=== PATIENT | male | born 1975 | race Caucasian/White ===

== ENCOUNTER 2024-07-21 15:12 | Observation (INO) ==
[2024-07-21 15:54] LABS: Hematocrit (blood only) 49.2 % (42.0-52.0); Hemoglobin 16.9 g/dl (14.0-18.0); Mean Corpuscular Hemoglobin 31.4 pg (25.0-34.0); Mean Corpuscular Hgb Conc 34.3 g/dL (32.0-36.0); Mean Corpuscular Volume 91.4 fL (80.0-100.0); Mean Platelet Volume 9.9 fL (9.4-12.4); Platelet Count 285 K/uL (130-400); RDW Coefficient of Variation 12.5 % (11.5-14.5); RDW Standard Deviation 42.2 fL (36.4-46.3); Red Blood Count 5.38 M/uL (4.70-6.10); White Blood Count 13.24 K/ul (4.8-10.8)
--- NOTE | 2024-07-21 16:04 | Emergency Department Note ---
History of Present Illness General Chief complaint: Vomiting Stated complaint: SULFUR BURPS VOMINTG BLACK Time Seen by Provider: 07/21/24 15:55 History of Present Illness Maximum Pain Intensity: 6 This is a 48-year-old male that presents to the emergency department via private vehicle with complaints of "burping, vomiting black, abdominal pain". Patient notes that 2 weeks ago he had a diarrheal type illness and began with eructation that was "sulfur" like in nature. Then yesterday morning he developed abdominal pain, mid abdomen region. He took some Gas-X and then noted some distention of the abdomen. He then took Pepto-Bismol and had some vomiting. He notes the vomit was black/brown "sludge". Patient noted that he last ate yesterday evening noting that he begins to feel nauseated/vomit when he eats and also have abdominal distention. No black tarry stools. No history of similar. No regular alcohol use. He notes he is otherwise healthy. Home Medications Medication Instructions Recorded Confirmed Type No Known Home Medications 07/21/24 07/21/24 History Allergies Allergy/AdvReac Type Severity Reaction Status Date / Time itraconazole Allergy Pt Verified 07/21/24 21:48 tolerated Fluconazole - doesn't remember reaction Past Med/Surg History Problem List (Updated 07/21/24 @ 22:16 by Dallin Mojica PA-C) Abnormal computed tomography of abdomen and pelvis (Acute) GI bleed Abdominal pain (Acute) Diarrhea (Acute) Nausea & vomiting (Acute) Social History Smoking Status: Current every day smoker Tobacco Type: Cigarettes Preferred Language: Yemeni Feels Safe at Home: Yes Review of Systems A total of 10 systems reviewed and were otherwise negative Physical Exam Vital Signs Vital Signs - 24 hr 07/21/24 15:25 07/21/24 15:53 07/21/24 15:53 Temperature 36.3 C L Temperature Source Skin Pulse Rate 81 Pulse Rate [Apical] 73 Respiratory Rate 20 11 L Respiratory Effort / Characteristics Non-Labored Spontaneous Non-Labored Spontaneous Respiratory Depth Normal Normal Blood Pressure 113/77 Blood Pressure [Left Arm] 111/81 Blood Pressure Mean 89 Blood Pressure Mean [Left Arm] 91 Pulse Oximetry 98 99 99 Oxygen Delivery Method Room Air Room Air Room Air Sepsis Recent Fever Within 48 Hours No Sepsis New/Unexplained Change in Mental Status N/A Sepsis Action Taken by Nursing No Action Required 07/21/24 16:23 07/21/24 17:14 Temperature Temperature Source Pulse Rate 85 Pulse Rate [Apical] 64 Respiratory Rate 17 Respiratory Effort / Characteristics Non-Labored Spontaneous Respiratory Depth Normal Blood Pressure Blood Pressure [Left Arm] 120/72 Blood Pressure Mean Blood Pressure Mean [Left Arm] 88 Pulse Oximetry 97 Oxygen Delivery Method Sepsis Recent Fever Within 48 Hours Sepsis New/Unexplained Change in Mental Status Sepsis Action Taken by Nursing VITAL SIGNS - Vital signs and nursing notes were reviewed. Stable and afebrile. GENERAL -48-year-old male appearing his stated age who is in no acute distress. Communicates well with provider and answers questions appropriately. SKIN - Without rashes. No meningeal or petechial rash. HEAD - NC/AT. EYES - PERRL with EOMI bilaterally. Sclera anicteric. LUNGS - Chest wall symmetric without accessory muscle use, intercostals retractions, or central cyanosis. Normal vesicular breath sounds CTA B/L. No wheezes, rales, or rhonchi appreciated. CARDIAC - RRR ABDOMEN - Abdominal contour normal without pulsations or visible masses. BS normoactive all four quadrants. Generalized periumbilical abdominal tenderness to palpation noted. No palpable masses, hepatosplenomegaly, or ascites noted. EXTREMITIES - No clubbing or peripheral cyanosis. +5/5 strength noted in UE/LE bilaterally. NEUROLOGIC - Cranial nerves II through XII grossly intact. PSYCH -alert, oriented and pleasant on exam. Course Administered Medications Lactated Ringer's (Lr) 1,000 mls @ 80 mls/hr IV .[id number] [facility] Stop: 07/24/24 18:59 Last Admin: 07/21/24 19:42 Dose: 80 mls/hr Documented By: KEVON Ondansetron HCl (Ondansetron Inj 2 Mg/Ml 2 Ml Vial) 4 mg IV Q4H PRN PRN Reason: Nausea Stop: 08/20/24 18:28 Last Admin: 07/21/24 21:48 Dose: 4 mg Documented By: MICKEY Discontinued Medications Famotidine (Pepcid 20mg Iv Push) 20 mg in 5 mls @ 2.5 mls/min IV NOW STA Stop: 07/21/24 16:05 Last Admin: 07/21/24 16:10 Dose: 2.5 mls/min Documented By: KEVON Sodium Chloride (Nss) 1,000 mls @ 999 mls/hr IV .Q1H1M ONE Stop: 07/21/24 17:16 Last Infusion: 07/21/24 17:23 Dose: Infused Documented By: Admin: 07/21/24 16:20 Dose: 999 mls/hr Documented By: KEVON Piperacillin Sod/Tazobactam Sod (Zosyn) 4.5 gm in 100 mls @ 200 mls/hr IV NOW ONE; Protocol Stop: 07/21/24 18:23 Last Infusion: 07/21/24 18:37 Dose: Infused Documented By: Admin: 07/21/24 18:05 Dose: 200 mls/hr Documented By: KEVON Pantoprazole Sodium (Protonix) 40 mg in 10 mls @ 5 mls/min IV NOW ONE Stop: 07/21/24 18:27 Last Admin: 07/21/24 18:41 Dose: 5 mls/min Documented By: KEVON Ioversol (Optiray 320 100ml) 90 ml IV ONCE ONE Stop: 07/21/24 16:36 Last Admin: 07/21/24 16:35 Dose: 90 ml Documented By: AZRA Ondansetron HCl (Ondansetron Inj 2 Mg/Ml 2 Ml Vial) 4 mg IV NOW STA Stop: 07/21/24 16:05 Last Admin: 07/21/24 16:12 Dose: 4 mg Documented By: KEVON Medical Decision Making Laboratory Data 07/21/24 15:34 07/21/24 15:34 Lab Results 07/21/24 07/21/24 07/21/24 Range/Units 15:34 15:44 16:30 WBC 13.24 H (4.8-10.8) K/ul RBC 5.38 (4.70-6.10) M/uL Hgb 16.9 (14.0-18.0) g/dl Hct 49.2 (42.0-52.0) % MCV 91.4 (80.0-100.0) fL MCH 31.4 (25.0-34.0) pg MCHC 34.3 (32.0-36.0) g/dL RDW Std Deviation 42.2 (36.4-46.3) fL RDW Coeff of Ileana 12.5 (11.5-14.5) % Plt Count 285 (130-400) K/uL MPV 9.9 (9.4-12.4) fL PT 10.8 (9.0-12.0) Seconds INR 1.0 (0.9-1.1) APTT 29 (21-31) Seconds PTT Ratio 1.1 Sodium 138 (136-145) mmol/L Potassium 4.4 (3.5-5.1) mmol/L Chloride 105 (98-107) mmol/L Carbon Dioxide 28 (21-32) mmol/L Anion Gap 5 (3-11) BUN 13 (6-23) mg/dl Creatinine 0.85 (0.6-1.4) mg/dl Est Cr Clr Drug Dosing 120.9 ml/min eGFR 105.86 BUN/Creatinine Ratio 15.3 (10-20) Glucose 86 (70-99(Fasting)) mg/dl Lactate 0.8 (0.4-2.0) mmol/L Calcium 9.3 (8.6-10.3) mg/dl Total Bilirubin 0.8 (0.2-1.0) mg/dl AST 12 L (13-39) U/L ALT 10 (7-52) U/L Alkaline Phosphatase 95 (34-104) U/L Troponin I High Sens 2.4 (0-20) pg/ml Total Protein 6.9 (6.0-8.3) gm/dl Albumin 4.5 (3.4-5.0) gm/dl Globulin 2.4 L (2.5-4.0) gm/dl Albumin/Globulin Ratio 1.9 (0.9-2) Lipase 22 (11-82) U/L Procalcitonin < 0.02 (0-0.5) ng/ml Urine Color Urine Appearance (Clear) Urine pH (4.5-7.5) Ur Specific Goodwin (1.000-1.030) Urine Protein (Negative) Urine Glucose (UA) (Negative) Urine Ketones (Negative) Urine Blood (Negative) Urine Nitrite (Negative) Urine Bilirubin (Negative) Urine Urobilinogen (Negative) Ur Leukocyte Esterase (Negative) Blood Type O Positive Antibody Screen NEGATIVE 07/21/24 Range/Units 17:11 WBC (4.8-10.8) K/ul RBC (4.70-6.10) M/uL Hgb (14.0-18.0) g/dl Hct (42.0-52.0) % MCV (80.0-100.0) fL MCH (25.0-34.0) pg MCHC (32.0-36.0) g/dL RDW Std Deviation (36.4-46.3) fL RDW Coeff of Ileana (11.5-14.5) % Plt Count (130-400) K/uL MPV (9.4-12.4) fL PT (9.0-12.0) Seconds INR (0.9-1.1) APTT (21-31) Seconds PTT Ratio Sodium (136-145) mmol/L Potassium (3.5-5.1) mmol/L Chloride (98-107) mmol/L Carbon Dioxide (21-32) mmol/L Anion Gap (3-11) BUN (6-23) mg/dl Creatinine (0.6-1.4) mg/dl Est Cr Clr Drug Dosing ml/min eGFR BUN/Creatinine Ratio (10-20) Glucose (70-99(Fasting)) mg/dl Lactate (0.4-2.0) mmol/L Calcium (8.6-10.3) mg/dl Total Bilirubin (0.2-1.0) mg/dl AST (13-39) U/L ALT (7-52) U/L Alkaline Phosphatase (34-104) U/L Troponin I High Sens (0-20) pg/ml Total Protein (6.0-8.3) gm/dl Albumin (3.4-5.0) gm/dl Globulin (2.5-4.0) gm/dl Albumin/Globulin Ratio (0.9-2) Lipase (11-82) U/L Procalcitonin (0-0.5) ng/ml Urine Color Yellow Urine Appearance Clear (Clear) Urine pH 6.0 (4.5-7.5) Ur Specific Goodwin > 1.045 H (1.000-1.030) Urine Protein Negative (Negative) Urine Glucose (UA) Negative (Negative) Urine Ketones 2+ H (Negative) Urine Blood Negative (Negative) Urine Nitrite Negative (Negative) Urine Bilirubin Negative (Negative) Urine Urobilinogen Negative (Negative) Ur Leukocyte Esterase Negative (Negative) Blood Type Antibody Screen Imaging Data Radiologist's Impression: Chest X-Ray 07/21/24 16:04 Chest radiograph, one view History: Chest pain Comparison: Findings: Single AP view of the chest performed. 4:01 PM No focal consolidation or pleural effusion. No pneumothorax. The cardiomediastinal silhouette is within normal limits. Normal pulmonary vascularity. No evidence for lymphadenopathy. No visualized bony or soft tissue abnormality. Impression: Normal chest radiograph Electronically signed by Josh Pat 07-21-2024 4:41 PM Abdomen/Pelvis CT 07/21/24 16:08 Technique: Axial images were obtained along with coronal and sagittal reconstruction. Patient was injected with contrast intravenously, the amount and type is recorded in the EMR DLP in mGycm reported in the EMR record. Dose lowering technique: Automated exposure control with adjustment of the MA and/or KV, use of iterative reconstruction. Data included in the medical record Findings: Imaged lower lung crenshaw are clear. Air is noted in the liver. Probably in the portal veins. No biliary dilatation. No masses. Gallbladder is normal. Pancreas is unremarkable. No dilatation of the pancreatic duct. Kidneys are normal. No free air or evidence of small bowel obstruction. Normal appendix. Bladder is unremarkable. Severe disc space narrowing at several lumbar levels. Impression Air noted in the liver, probably in the hepatic veins. Etiology is not evident from the examination Electronically signed by Josh Pat 07-21-2024 4:49 PM MDM Narrative Patient was seen and evaluated as above in room C09. Review was performed of triage nursing notes and vital signs. Patient presents to us today with abdominal discomfort, vomiting and some eructation. Overall benign abdominal examination. Vital signs stable. Options of care were discussed with the patient. IV access was established. Labs were drawn. Leukocytosis 13.24. No anemia. No emergent metabolic disturbance. Urinalysis negative. Lipase normal. Procalcitonin and lactate normal. Blood culture pending. Urinalysis does not suggest infection. CT scan of the abdomen/pelvis is as above. Air noted in the liver, probably in hepatic veins per radiologist. Multiple differentials considered. I will cover with empiric antibiotics noting the patient's abdominal pain, CT findings and leukocytosis. Case discussed with GI. [address] Joy of GI. He went to bedside to see the patient. Please refer to his documentation regarding evaluation of the patient. Subsequently plan will be for inpatient management. Case discussed with the hospitalist service. Please refer to further documentation regarding his stay. Case was discussed with the attending physician. GCS: 15 In the evaluation and treatment of this patient the following differential diagnoses were entertained: Gastroenteritis, bowel obstruction, GI bleed, ascending cholangitis, among others Impression & Plan Nausea & vomiting, Diarrhea, Abdominal pain, Abnormal computed tomography of abdomen and pelvis Discharge Plan Visit Data Chief Complaint: Vomiting Stated Complaint: SULFUR BURPS VOMINTG BLACK ED Provider: Jarred Leslie ED Midlevel Provider: Dallin Mojica Discharge Problem: Nausea & vomiting, Diarrhea, Abdominal pain, Abnormal computed tomography of abdomen and pelvis Patient Disposition: Admitted As Inpatient Condition: Good Discharge Instructions Interventions: ED Discharge Assessment Last Done: 07/21/24 21:19
[2024-07-21] MEDS: FAMOTIDINE 20MG IV PUSH 20 MG/5 ML SYR IV STA (16:10)
[2024-07-21] MEDS: ONDANSETRON INJ 2 MG/ML 2 ML VIAL IV STA (16:12)
[2024-07-21 16:13] LABS: Albumin Globulin Ratio 1.9 (0.9-2); Albumin Level 4.5 gm/dl (3.4-5.0); BUN Creatinine Ratio 15.3 (10-20); Bilirubin,Total 0.8 mg/dl (0.2-1.0); Calcium 9.3 mg/dl (8.6-10.3); Creatinine Clr Calc Pharmacy 120.9 ml/min; Globulin 2.4 gm/dl (2.5-4.0); Potassium 4.4 mmol/L (3.5-5.1); Total Protein 6.9 gm/dl (6.0-8.3)
[2024-07-21 16:20] LABS: Troponin I High Sensitivity 2.4 pg/ml (0-20)
[2024-07-21] MEDS: SODIUM CHLORIDE 0.9% 1,000 ML IV ONE (16:20)
[2024-07-21 16:25] LABS: Partial Thromboplastin Ratio 1.1; Partial Thromboplastin Time 29 Seconds (21-31); Prothrombin Time 10.8 Seconds (9.0-12.0)
[2024-07-21] MEDS: OPTIRAY 320 100ml IV ONE (16:35)
--- NOTE | 2024-07-21 16:42 | XRay Report ---
Chest radiograph, one view History: Chest pain Comparison: Findings: Single AP view of the chest performed. 4:01 PM No focal consolidation or pleural effusion. No pneumothorax. The cardiomediastinal silhouette is within normal limits. Normal pulmonary vascularity. No evidence for lymphadenopathy. No visualized bony or soft tissue abnormality. Impression: Normal chest radiograph Electronically signed by Josh Pat 07-21-2024 4:41 PM
--- NOTE | 2024-07-21 16:49 | CT Scan Report ---
Technique: Axial images were obtained along with coronal and sagittal reconstruction. Patient was injected with contrast intravenously, the amount and type is recorded in the EMR DLP in mGycm reported in the EMR record. Dose lowering technique: Automated exposure control with adjustment of the MA and/or KV, use of iterative reconstruction. Data included in the medical record Findings: Imaged lower lung crenshaw are clear. Air is noted in the liver. Probably in the portal veins. No biliary dilatation. No masses. Gallbladder is normal. Pancreas is unremarkable. No dilatation of the pancreatic duct. Kidneys are normal. No free air or evidence of small bowel obstruction. Normal appendix. Bladder is unremarkable. Severe disc space narrowing at several lumbar levels. Impression Air noted in the liver, probably in the hepatic veins. Etiology is not evident from the examination Electronically signed by Josh Pat 07-21-2024 4:49 PM
[2024-07-21 17:27] LABS: Appearance Urine Clear (Clear); Bilirubin Urine Negative (Negative); Blood Urine Negative (Negative); Color Urine Yellow; Glucose Urine UA Negative (Negative); Ketones Urine 2+ (Negative); Leukocyte Esterase Urine Negative (Negative); Nitrite Urine Negative (Negative); Protein Urine Negative (Negative); Specific Gravity Urine > 1.045 (1.000-1.030); Urobilinogen Urine Negative (Negative)
[2024-07-21] MEDS: PIPERACILLIN/TAZOBACTAM 4.5 GM/100 ML BAG IV ONE (18:05)
--- NOTE | 2024-07-21 18:38 | History & Physical Report ---
Date of Service July 21, 2024 Assessment & Plan (1) Nausea & vomiting: (2) Diarrhea: Plan This is a 48-year-old gentleman with no significant past medical history who presented to the emergency department on 08/07/2024 with a chief complaint of nausea and vomiting. While in the emergency department patient was found to have a mild elevation of his WBC at 13.24, hemoglobin completely normal at 16.9. BMP unremarkable. His Pro-Krishna was negative. His troponin was negative at 2.4. His LFTs were completely normal. Urine was negative for infection. His CXR was negative. He did have a CTAP that did reveal air noted in the liver, probably the hepatic veins. The patient told me that Dr. Joy, the lab technician on-call did evaluate him prior to my encounter. The patient tells me that Dr. Joy is going to reach out to the radiology department to get a second read on his CAT scan. #Nausea/vomiting/diarrhea Approximately 2 weeks ago household infection of gastroenteritis. Patient's symptoms have persisted on and off since then including a worsening of vomiting/diarrhea in the last 24 to 48 hours Likely gastritis from recent infection; No NSAID use; dark tarry vomit secondary to pepto-bismol use given stable hgb. CTAP: Air noted in the liver, probably the hepatic veins; Chest x-ray negative CBC with mild leukocytosis of 13.24, hemoglobin unremarkable. CMP unremarkable. Procal negative; troponin negative. Lipase pending IV PPI twice daily scheduled; Zofran IV as needed for nausea vomiting Given patient still nauseous, keep n.p.o. but allow sips and chips. Can likely advance diet in the a.m. GI consulted, appreciate recommendations Stool studies pending Continue IV fluids Hold further IV antibiotics on admission given symptoms appear noninfectious in nature. AM CBC, CMP DVT prophylaxis: Encourage ambulation Code: Full Case was discussed with Dr. Bailey at time of admission History of Present Illness Primary Care Provider: Sesar Leslie This is a 48-year-old gentleman with no significant past medical history who presented to the emergency department on 08/07/2024 with a chief complaint of nausea and vomiting. The patient was seen and examined this evening with his at bedside. Patient reports that about 2 weeks ago his family household had an episode of gastroenteritis. He states that his family had recovered within 24 to 48 hours but he feels that his symptoms have persisted on. He states that over the last 2 weeks he has not felt right and has had intermittent nausea and diarrhea. He also states that he has been experiencing "sulfur burps". He denies any acid reflux. He denies any NSAID use. He states that yesterday he did take a dose of Pepto-Bismol but as soon as he drank it he immediately vomited it back up. He states that that was tar-like. He also reports that his episode of vomiting today was also tar-like. He states that he did have an episode of diarrhea today that was darker in color. He states that he did not exactly look closely at his stool. He denies any bright red blood. He admits to epigastric abdominal pain and describes this as a cramping sensation. He states that this has not subsided since reporting to the emergency department. He denies any chest pain, shortness of breath, urinary complaints. Denies any lower extremity edema. While in the emergency department patient was found to have a mild elevation of his WBC at 13.24, hemoglobin completely normal at 16.9. BMP unremarkable. His Pro-Krishna was negative. His troponin was negative at 2.4. His LFTs were completely normal. Urine was negative for infection. His CXR was negative. He did have a CTAP that did reveal air noted in the liver, probably the hepatic veins. The patient told me that Dr. Joy, the lab technician on-call did evaluate him prior to my encounter. The patient tells me that Dr. Joy is going to reach out to the radiology department to get a second read on his CAT scan. Allergies Allergy/AdvReac Type Severity Reaction Status Date / Time itraconazole Allergy Pt Verified 07/21/24 21:48 tolerated Fluconazole - doesn't remember reaction Home Medications Medication Instructions Recorded Confirmed Type pantoprazole 40 mg tablet,delayed 40 mg PO DAILY #37 tabs 07/23/24 Rx release (Protonix) Past Med/Surg History Problem List (Updated 07/23/24 @ 10:10 by ANTON Trevino) Coffee ground emesis Hematemesis Abnormal computed tomography of abdomen and pelvis (Acute) GI bleed Abdominal pain (Acute) Diarrhea (Acute) Nausea & vomiting (Acute) Social History Smoking Status: Current every day smoker Tobacco Type: Cigarettes Cigarettes Per Day: LESS THAN A PACK; Hx Alcohol Use: Yes Hx Substance Use: No Preferred Language: Mozambican Communication Ability: Effective Svp Operations Required: No Beliefs That Will Affect Care: None Current Living Situation: Spouse Feels Safe at Home: Yes Assistive Devices: None Physical Exam Physical Exam: General: no acute distress; non-toxic appearing; well-nourished; cooperative HEENT: normocephalic, atraumatic; no scleral icterus; PERRLA w/ EOMs intact; vision and hearing grossly intact Neck: supple; no lymphadenopathy; trachea midline Skin: warm, dry without signs of tenting; no cyanosis; no rashes, bruising, lesions, or erythema noted CV: chest wall NTP; RRR; S1/S2 normal; no murmurs/rubs/gallops; pulses intact and symmetric at radial, DP, and PT Lungs: no acute respiratory distress; symmetrical chest wall expansion; clear breath sounds across all lung crenshaw w/o adventitious sounds; no wheezing ABD: Soft, NTP; BS present; no rebound/guarding; no distention MSK: no tics or fasciculations; no edema noted in the LEs b/l, nonerythematous Neuro: A&Ox3; normal mood and affect; fluent speech; no focal deficits; sensation grossly intact in the LEs b/l Results & Data Results & Data Vital Signs (Past 12 Hours) Vital Signs Temp Pulse Pulse Resp BP BP Pulse Ox 07/21/24 17:14 64 17 120/72 97 07/21/24 16:23 85 07/21/24 15:53 99 07/21/24 15:53 73 11 L 111/81 99 07/21/24 15:25 36.3 C L 81 20 113/77 98 O2 Del Method 07/21/24 17:14 07/21/24 16:23 07/21/24 15:53 Room Air 07/21/24 15:53 Room Air 07/21/24 15:25 Room Air Supervising Physician Co-Signing Physician Notes During face to face encounter, I obtained a history and physical examination, discussed plan of care with patient and answered any questions. I discussed plan of care with JAVON Barajas. I reviewed above note and agree with it except for the following: Patient will be admitted for nausea, vomiting, diarrhea. Will observation and treat with supportive care. will hold IV antibiotics PG Care Time/CCT Total # of Minutes Spent Total Time Spent with Patient: Total time spent is greater than 50% in coordination of care (as documented) at patient's floor/unit and/or counseling patient: Coding Level of Care Code 86800 INT INP/OBS CARE 3/75MIN Diagnoses Nausea & vomiting R11.2 Diarrhea R19.7
[2024-07-21] MEDS: PANTOprazole 40 MG/10 ML SYR IV ONE (18:41)
--- NOTE | 2024-07-21 19:18 | Gastrointestinal Consultation ---
Date of Consultation July 21, 2024 Assessment & Plan (1) Abdominal pain: The differential diagnosis for portal vein air in this patient could be related to his recent gastroenteritis, possible peptic ulcer disease in light of possible melena and hematemesis, less likely ischemia. There is no evidence of perforation on CT with no pneumoperitoneum. Inflammatory conditions of the GI tract can cause translocation of air most commonly just to the portal vein however could sometimes extend into the hepatic veins. Other etiologies that do not apply here would be iatrogenic or traumatic. Clinically he is hemodynamically stable not septic and has a benign abdomen. Agree with empiric antibiotics in light of the leukocytosis monitor his clinical exam regularly will reassess in a.m. will consider upper endoscopy on Tuesday sooner if his condition changes. (2) GI bleed: Suspect GI bleed in light of the possible hematemesis and melena. Likely upper GI source consistent with either peptic ulcer disease, hemorrhagic gastritis unlikely varices in light of lack of history of liver disease. Recommend IV PPI monitor hemoglobin hematocrit will consider endoscopy within the next 48 hours. History of Present Illness Reason for Consultation: Abdominal pain possible melena and hepatic vein air History of Present Illness Patient presents to the ER today with worsening upper abdominal pain associated with vomiting coffee grounds and black bowel movements over the last several days. Over the last 2 weeks she has been suffering from a GI illness characte rized by diarrhea nausea and vomiting. Majority of symptoms resolved. His also was sick at the time. However he continued to have some vague upper abdominal discomfort which lingered. Today the pain worsened with some feeling of distention and he vomited up coffee-ground material and continue to have black tarry type bowel movements. CT scan of the abdomen was unremarkable except for some hepatic vein air that was noticed. He denies any prior significant GI illnesses. He is otherwise healthy without any significant medical issues and takes no medication. Allergies Allergy/AdvReac Type Severity Reaction Status Date / Time Triazole Antifungals Allergy Unknown Pt Uncoded 07/21/24 17:20 tolerated Fluconazole - doesn't remember reaction Home Medications Medication Instructions Recorded Confirmed Type No Known Home Medications 07/21/24 07/21/24 History Patient History Social History Smoking Status: Current every day smoker Tobacco Type: Cigarettes Preferred Language: Grenadian Feels Safe at Home: Yes Review of Systems Review of Systems: No fever No chills No SOB No CP + Abd pain Physical Exam Physical Exam: Eyes; anicteric HENT No masses Chest clear to A Cor S1, S2 physiologic Abd: softer mild upper abdominal tenderness no rebound no guarding no masses Ext no edema Results & Data Vital Signs (Past 12 Hours) Vital Signs Temp Pulse Pulse Resp BP BP Pulse Ox 07/21/24 17:14 64 17 120/72 97 07/21/24 16:23 85 07/21/24 15:53 99 07/21/24 15:53 73 11 L 111/81 99 07/21/24 15:25 36.3 C L 81 20 113/77 98 O2 Del Method 07/21/24 17:14 07/21/24 16:23 07/21/24 15:53 Room Air 07/21/24 15:53 Room Air 07/21/24 15:25 Room Air Laboratory Results Laboratory Results - last 48 hr 07/21/24 07/21/24 07/21/24 15:34 15:44 16:30 WBC 13.24 H RBC 5.38 Hgb 16.9 Hct 49.2 MCV 91.4 MCH 31.4 MCHC 34.3 RDW Std Deviation 42.2 RDW Coeff of Ileana 12.5 Plt Count 285 MPV 9.9 PT 10.8 INR 1.0 APTT 29 PTT Ratio 1.1 Sodium 138 Potassium 4.4 Chloride 105 Carbon Dioxide 28 Anion Gap 5 BUN 13 Creatinine 0.85 Est Cr Clr Drug Dosing 120.9 eGFR 105.86 BUN/Creatinine Ratio 15.3 Glucose 86 Lactate 0.8 Calcium 9.3 Total Bilirubin 0.8 AST 12 L ALT 10 Alkaline Phosphatase 95 Troponin I High Sens 2.4 Total Protein 6.9 Albumin 4.5 Globulin 2.4 L Albumin/Globulin Ratio 1.9 Lipase 22 Procalcitonin < 0.02 Urine Color Urine Appearance Urine pH Ur Specific [place] Urine Protein Urine Glucose (UA) Urine Ketones Urine Blood Urine Nitrite Urine Bilirubin Urine Urobilinogen Ur Leukocyte Esterase Blood Type O Positive Antibody Screen NEGATIVE 07/21/24 17:11 WBC RBC Hgb Hct MCV MCH MCHC RDW Std Deviation RDW Coeff of Ileana Plt Count MPV PT INR APTT PTT Ratio Sodium Potassium Chloride Carbon Dioxide Anion Gap BUN Creatinine Est Cr Clr Drug Dosing eGFR BUN/Creatinine Ratio Glucose Lactate Calcium Total Bilirubin AST ALT Alkaline Phosphatase Troponin I High Sens Total Protein Albumin Globulin Albumin/Globulin Ratio Lipase Procalcitonin Urine Color Yellow Urine Appearance Clear Urine pH 6.0 Ur Specific [place] > 1.045 H Urine Protein Negative Urine Glucose (UA) Negative Urine Ketones 2+ H Urine Blood Negative Urine Nitrite Negative Urine Bilirubin Negative Urine Urobilinogen Negative Ur Leukocyte Esterase Negative Blood Type Antibody Screen Diagnostic Findings Chest X-Ray 07/21/24 16:04 Chest radiograph, one view History: Chest pain Comparison: Findings: Single AP view of the chest performed. 4:01 PM No focal consolidation or pleural effusion. No pneumothorax. The cardiomediastinal silhouette is within normal limits. Normal pulmonary vascularity. No evidence for lymphadenopathy. No visualized bony or soft tissue abnormality. Impression: Normal chest radiograph Electronically signed by Josh Pat 07-21-2024 4:41 PM Abdomen/Pelvis CT 07/21/24 16:08 Technique: Axial images were obtained along with coronal and sagittal reconstruction. Patient was injected with contrast intravenously, the amount and type is recorded in the EMR DLP in mGycm reported in the EMR record. Dose lowering technique: Automated exposure control with adjustment of the MA and/or KV, use of iterative reconstruction. Data included in the medical record Findings: Imaged lower lung crenshaw are clear. Air is noted in the liver. Probably in the portal veins. No biliary dilatation. No masses. Gallbladder is normal. Pancreas is unremarkable. No dilatation of the pancreatic duct. Kidneys are normal. No free air or evidence of small bowel obstruction. Normal appendix. Bladder is unremarkable. Severe disc space narrowing at several lumbar levels. Impression Air noted in the liver, probably in the hepatic veins. Etiology is not evident from the examination Electronically signed by Josh Pat 07-21-2024 4:49 PM PG Care Time/CCT Total # of Minutes Spent Total Time Spent with Patient: Total time spent is greater than 50% in coordination of care (as documented) at patient's floor/unit and/or counseling patient: Coding Level of Care Code 23723 INT INP/OBS CARE 3/75MIN Diagnoses Abdominal pain R10.9 GI bleed K92.2
[2024-07-21] MEDS: LACTATED RINGER'S 1,000 ML IV SCH (19:42)
[2024-07-21] MEDS: ONDANSETRON INJ 2 MG/ML 2 ML VIAL IV PRN (21:48)
[2024-07-22 06:51] LABS: Hematocrit (blood only) 41.9 % (42.0-52.0); Hemoglobin 14.4 g/dl (14.0-18.0); Mean Corpuscular Hemoglobin 31.2 pg (25.0-34.0); Mean Corpuscular Hgb Conc 34.4 g/dL (32.0-36.0); Mean Corpuscular Volume 90.7 fL (80.0-100.0); Mean Platelet Volume 10.1 fL (9.4-12.4); Platelet Count 249 K/uL (130-400); RDW Coefficient of Variation 12.6 % (11.5-14.5); RDW Standard Deviation 41.5 fL (36.4-46.3); Red Blood Count 4.62 M/uL (4.70-6.10); White Blood Count 7.96 K/ul (4.8-10.8)
[2024-07-22 07:21] LABS: Albumin Globulin Ratio 1.7 (0.9-2); Albumin Level 3.4 gm/dl (3.4-5.0); BUN Creatinine Ratio 12.5 (10-20); Calcium 8.4 mg/dl (8.6-10.3); Creatinine Clr Calc Pharmacy 128.4 ml/min; Potassium 3.9 mmol/L (3.5-5.1); Total Protein 5.4 gm/dl (6.0-8.3)
--- NOTE | 2024-07-22 07:46 | Hospitalist Progress Note ---
Date of Service July 22, 2024 Assessment & Plan (1) Hematemesis: (2) Nausea & vomiting: (3) Diarrhea: (4) Abdominal pain: (5) GI bleed: Plan This is a 48-year-old gentleman with no significant past medical history who presented to the emergency department on 08/07/2024 with a chief complaint of nausea and vomiting. While in the emergency department patient was found to have a mild elevation of his WBC at 13.24, hemoglobin completely normal at 16.9. BMP unremarkable. His Pro-Krishna was negative. His troponin was negative at 2.4. His LFTs were completely normal. Urine was negative for infection. His CXR was negative. He did have a CTAP that did reveal air noted in the liver, probably the hepatic veins. The patient told me that Dr. Joy, the insulation worker interior surface on-call did evaluate him prior to my encounter. The patient tells me that Dr. Joy is going to reach out to the radiology department to get a second read on his CAT scan. #Hematemesis (by report), n/v, diarrhea Approximately 2 weeks ago household infection of gastroenteritis. Patient's symptoms have persisted on and off since then including a worsening of vomiting/diarrhea in the last 24 to 48 hours Likely gastritis from recent infection; No NSAID use; dark tarry vomit secondary to pepto-bismol use given stable hgb. CTAP noted air in liver, probably hepatic veins WBC 13.2k, hgb 16 on admission (?dehydrated w/ n/v). Procal <0.02 GI consulted, recommend continue empiric abx, will resume Zosyn as given in ER for now. Per discussion w/ Dr Joy, would continue until blood cultures resulted - pending WBC wnl, afebrile. Blood cultures pending Hgb stable 14.1 with ongoing IVF and suspect dilutional. No further n/v or bleeding (or diarrhea) Stool studies, fecal occult ordered - not yet collected Antiemetics as needed Continue IVF, CLEAR LIQUID DIET FOR TODAY NPO for EGD in AM senthil/ Dr Joy DVT proph: SCDs, ambulation Dispo: continued inpatient stay, EGD in AM w/ Dr Joy Admission and Anticipated Discharge Date Admission Date: July 21, 2024 Supervising Physician Co-Signing Physician Notes The patient was not seen by me. The chart was reviewed. Case discussed with KAMERON Philip. Agree with assessment and plan Subjective Eval this morning, feeling much better. Reported 2 wks ago him and ill but she recovered and he had ongoing issues. No belly pain, is hungry, reports hasn't eaten x 2 days. Clear liquids for today/NPO for EGD tomorrow. No fever/chills, no chest pain/shortness of breath or further nausea/vomiting. Questions/concerns addressed at this time. Physical Exam 2 Physical Exam: General: 48yo male sitting up in bed, NAD, reports feeling improved Head atraumatic, normocephalic mmm, trachea midline Resp: even/unlabored, no wheezing, on room air CV: RRR, no significant m/r/g, no pitting edema GI: +BS, soft, NONTENDER, no guarding/rebound MSK/Neuro: nonfocal, not confused Psych: AOxx3, cooperative with exam Results & Data Results & Data Vital Signs (Past 12 Hours) Vital Signs Temp Pulse Pulse Pulse Resp BP Pulse Ox 07/22/24 07:34 36.4 C L 67 18 100/62 94 07/21/24 21:25 36.6 C 71 18 109/71 96 07/21/24 21:00 69 16 105/62 95 07/21/24 20:33 72 O2 Del Method 07/22/24 07:34 Room Air 07/21/24 21:25 Room Air 07/21/24 21:00 Room Air 07/21/24 20:33 Laboratory Results 07/22/24 06:20 07/22/24 06:20 LFTs wnl Lipase 22 Procal <0.02 Blood cultures pending Diagnostic Findings Chest X-Ray 07/21/24 16:04 Chest radiograph, one view History: Chest pain Comparison: Findings: Single AP view of the chest performed. 4:01 PM No focal consolidation or pleural effusion. No pneumothorax. The cardiomediastinal silhouette is within normal limits. Normal pulmonary vascularity. No evidence for lymphadenopathy. No visualized bony or soft tissue abnormality. Impression: Normal chest radiograph Electronically signed by Josh Pat 07-21-2024 4:41 PM Abdomen/Pelvis CT 07/21/24 16:08 Technique: Axial images were obtained along with coronal and sagittal reconstruction. Patient was injected with contrast intravenously, the amount and type is recorded in the EMR DLP in mGycm reported in the EMR record. Dose lowering technique: Automated exposure control with adjustment of the MA and/or KV, use of iterative reconstruction. Data included in the medical record Findings: Imaged lower lung crenshaw are clear. Air is noted in the liver. Probably in the portal veins. No biliary dilatation. No masses. Gallbladder is normal. Pancreas is unremarkable. No dilatation of the pancreatic duct. Kidneys are normal. No free air or evidence of small bowel obstruction. Normal appendix. Bladder is unremarkable. Severe disc space narrowing at several lumbar levels. Impression Air noted in the liver, probably in the hepatic veins. Etiology is not evident from the examination Electronically signed by Josh Pat 07-21-2024 4:49 PM PG Care Time/CCT Total # of Minutes Spent Total Time Spent with Patient: Total time spent is greater than 50% in coordination of care (as documented) at patient's floor/unit and/or counseling patient: Coding Level of Care Code 48658 SUB INP/OBS CARE 3/50MIN Diagnoses Hematemesis K92.0 Nausea & vomiting R11.2 Diarrhea R19.7 Abdominal pain R10.9 GI bleed K92.2
--- NOTE | 2024-07-22 08:05 | Gastroenterology Progress Note ---
Date of Service July 22, 2024 Assessment & Plan (1) Hematemesis: Plan: Dynamically stable hemoglobin stable no overt bleeding at the present time. Will proceed with endoscopy in a.m. (2) Abnormal computed tomography of abdomen and pelvis: Plan: Unclear etiology for portal and hepatic vein air on CT. Benign abdominal exam no signs of sepsis. Likely related to inflammatory process in the GI tract which is clinically resolving. Proceed with endoscopy for further investigation in AM. Admission and Anticipated Discharge Date Admission Date: July 21, 2024 Subjective Resting comfortably less abdominal pain no nausea no vomiting no bowel movements. No shortness of breath no chest pain. Physical Exam Physical Exam: No acute distress afebrile Respiratory rate regular Cardiac rhythm regular Abdomen soft nontender Results & Data Results & Data Vital Signs (Past 12 Hours) Vital Signs Temp Pulse Pulse Pulse Resp BP Pulse Ox 07/22/24 07:34 36.4 C L 67 18 100/62 94 07/21/24 21:25 36.6 C 71 18 109/71 96 07/21/24 21:00 69 16 105/62 95 07/21/24 20:33 72 O2 Del Method 07/22/24 07:34 Room Air 07/21/24 21:25 Room Air 07/21/24 21:00 Room Air 07/21/24 20:33 Laboratory Results Laboratory Results - last 48 hr 07/21/24 07/21/24 07/21/24 15:34 15:44 16:30 WBC 13.24 H RBC 5.38 Hgb 16.9 Hct 49.2 MCV 91.4 MCH 31.4 MCHC 34.3 RDW Std Deviation 42.2 RDW Coeff of Ileana 12.5 Plt Count 285 MPV 9.9 PT 10.8 INR 1.0 APTT 29 PTT Ratio 1.1 Sodium 138 Potassium 4.4 Chloride 105 Carbon Dioxide 28 Anion Gap 5 BUN 13 Creatinine 0.85 Est Cr Clr Drug Dosing 120.9 eGFR 105.86 BUN/Creatinine Ratio 15.3 Glucose 86 Lactate 0.8 Calcium 9.3 Total Bilirubin 0.8 AST 12 L ALT 10 Alkaline Phosphatase 95 Troponin I High Sens 2.4 Total Protein 6.9 Albumin 4.5 Globulin 2.4 L Albumin/Globulin Ratio 1.9 Lipase 22 Procalcitonin < 0.02 Urine Color Urine Appearance Urine pH Ur Specific [place] Urine Protein Urine Glucose (UA) Urine Ketones Urine Blood Urine Nitrite Urine Bilirubin Urine Urobilinogen Ur Leukocyte Esterase Blood Type O Positive Antibody Screen NEGATIVE 07/21/24 07/22/24 17:11 06:20 WBC 7.96 RBC 4.62 L Hgb 14.4 Hct 41.9 L MCV 90.7 MCH 31.2 MCHC 34.4 RDW Std Deviation 41.5 RDW Coeff of Ileana 12.6 Plt Count 249 MPV 10.1 PT INR APTT PTT Ratio Sodium 139 Potassium 3.9 Chloride 108 H Carbon Dioxide 26 Anion Gap 5 BUN 10 Creatinine 0.80 Est Cr Clr Drug Dosing 128.4 eGFR 107.82 BUN/Creatinine Ratio 12.5 Glucose 81 Lactate Calcium 8.4 L Total Bilirubin 1.0 AST 10 L ALT 8 Alkaline Phosphatase 71 Troponin I High Sens Total Protein 5.4 L D Albumin 3.4 Globulin 2.0 L Albumin/Globulin Ratio 1.7 Lipase Procalcitonin Urine Color Yellow Urine Appearance Clear Urine pH 6.0 Ur Specific [place] > 1.045 H Urine Protein Negative Urine Glucose (UA) Negative Urine Ketones 2+ H Urine Blood Negative Urine Nitrite Negative Urine Bilirubin Negative Urine Urobilinogen Negative Ur Leukocyte Esterase Negative Blood Type Antibody Screen PG Care Time/CCT Total # of Minutes Spent Total Time Spent with Patient: Total time spent is greater than 50% in coordination of care (as documented) at patient's floor/unit and/or counseling patient: Coding Level of Care Code 34436 SUB INP/OBS CARE 2/35MIN Diagnoses Hematemesis K92.0 Abnormal computed tomography of abdomen and pelvis R93.5
[2024-07-22] MEDS: PANTOprazole 40 MG/10 ML SYR IV SCH (08:12)
[2024-07-22] MEDS: 4.5GM X1 IV STA (08:13)
[2024-07-22] MEDS: PIPERACILLIN/TAZOBACTAM 4.5 GM/100 ML BAG IV SCH (14:14)
[2024-07-23 07:35] LABS: Hematocrit (blood only) 40.8 % (42.0-52.0); Hemoglobin 13.9 g/dl (14.0-18.0); Mean Corpuscular Hemoglobin 30.9 pg (25.0-34.0); Mean Corpuscular Hgb Conc 34.1 g/dL (32.0-36.0); Mean Corpuscular Volume 90.7 fL (80.0-100.0); Mean Platelet Volume 9.9 fL (9.4-12.4); Platelet Count 241 K/uL (130-400); RDW Coefficient of Variation 12.5 % (11.5-14.5); RDW Standard Deviation 41.3 fL (36.4-46.3); White Blood Count 7.05 K/ul (4.8-10.8)
[2024-07-23 07:55] LABS: Albumin Globulin Ratio 1.8 (0.9-2); Albumin Level 3.4 gm/dl (3.4-5.0); BUN Creatinine Ratio 7.4 (10-20); Bilirubin,Total 0.9 mg/dl (0.2-1.0); Calcium 8.5 mg/dl (8.6-10.3); Creatinine Clr Calc Pharmacy 108.2 ml/min; Globulin 1.9 gm/dl (2.5-4.0); Potassium 3.7 mmol/L (3.5-5.1); Total Protein 5.3 gm/dl (6.0-8.3)
--- NOTE | 2024-07-23 10:14 | Gastroenterology Progress Note ---
Date of Service July 23, 2024 Assessment & Plan (1) Coffee ground emesis: Plan: 48 year old male w/o past medical history admitted through the ED w/ prolonged nausea/vomiting and report of coffee ground emesis. Reports family at home had gastroenteritis and improved, however, his symptoms persisted. CTAP w/ portal vein air w/o evidence of perforation or pneumoperitoneum. His abdominal examination is benign. There is report of coffee ground emesis and melena prior to arrival and he is NPO for EGD evaluation today. Maintain NPO status for EGD, continue IV PPI. Trend H&H. Transfuse PRN per primary team. Document GI output. We appreciate assistance in the management of any serological abnormality and corrections to include: hemoglobin >7, INR <2, platelets >50,000, potassium levels >3.5 but <5.3, and sodium levels within 5 points of the reference range prior to endoscopic evaluation. Admission and Anticipated Discharge Date Admission Date: July 21, 2024 Supervising Physician Co-Signing Physician Notes I personally saw and examined the patient. I have reviewed the chart and agree with the documentation provided by the CONSULTING SYSTEMS ENGINEER including discussion about the assessment, treatment and plan. Briefly, EGD today coffee ground emesis and melena. CT with ? portal venous gas but benign exam. ? gastroentertitis. EGD today. NPO. Subjective Pt was seen and evaluated, chart reviewed. Is NPO for EGD this AM. Review of Systems Review of Systems: All other findings negative except as noted in HPI. Physical Exam Constitutional: well developed and well nourished Respiratory: normal respiratory effort, lungs clear to auscultation Cardiovascular: Rate/Rhythm: regular rate and regular rhythm Gastrointestinal (Abdomen): normal bowel sounds, soft, nontender, no hepatosplenomegaly Skin: no rashes, warm and dry Results & Data Results & Data Vital Signs (Past 12 Hours) Vital Signs Temp Pulse Resp BP Pulse Ox O2 Del Method 07/23/24 07:55 97.7 F 72 18 115/69 94 Room Air Laboratory Results 07/23/24 Range/Units 07:08 WBC 7.05 (4.8-10.8) K/ul RBC 4.50 L (4.70-6.10) M/uL Hgb 13.9 L (14.0-18.0) g/dl Hct 40.8 L (42.0-52.0) % MCV 90.7 (80.0-100.0) fL MCH 30.9 (25.0-34.0) pg MCHC 34.1 (32.0-36.0) g/dL RDW Std Deviation 41.3 (36.4-46.3) fL RDW Coeff of Ileana 12.5 (11.5-14.5) % Plt Count 241 (130-400) K/uL MPV 9.9 (9.4-12.4) fL Sodium 139 (136-145) mmol/L Potassium 3.7 (3.5-5.1) mmol/L Chloride 108 H (98-107) mmol/L Carbon Dioxide 27 (21-32) mmol/L Anion Gap 4 (3-11) BUN 7 (6-23) mg/dl Creatinine 0.95 (0.6-1.4) mg/dl Est Cr Clr Drug Dosing 108.2 ml/min eGFR 97.51 BUN/Creatinine Ratio 7.4 L (10-20) Glucose 88 (70-99(Fasting)) mg/dl Calcium 8.5 L (8.6-10.3) mg/dl Total Bilirubin 0.9 (0.2-1.0) mg/dl AST 10 L (13-39) U/L ALT 7 (7-52) U/L Alkaline Phosphatase 68 (34-104) U/L Total Protein 5.3 L (6.0-8.3) gm/dl Albumin 3.4 (3.4-5.0) gm/dl Globulin 1.9 L (2.5-4.0) gm/dl Albumin/Globulin Ratio 1.8 (0.9-2) PG Care Time/CCT Total # of Minutes Spent Total Time Spent with Patient: Total time spent is greater than 50% in coordination of care (as documented) at patient's floor/unit and/or counseling patient: Coding Level of Care Code None Diagnoses Coffee ground emesis K92.0
--- NOTE | 2024-07-23 12:24 | Anesthesiology Consultation ---
Date of Service July 23, 2024 Assessment & Plan Chart Review Chart Review: Acceptable Risk for Surgery and Patient NOT seen in Pre Admission Testing Consults Requested none History Surgery Operation Date: 07/23/24 17:10 Proposed Procedures p Esophagogastroduodenoscopy Caitlin Tucker MD Height/Weight Height: 6 ft 2 in Weight: 95.6 kg Allergies Allergy/AdvReac Type Severity Reaction Status Date / Time itraconazole Allergy Pt Verified 07/21/24 21:48 tolerated Fluconazole - doesn't remember reaction Medications Home Medications Medication Instructions Recorded Confirmed Last Taken No Known Home Medications 07/21/24 07/21/24 Unknown Active Medications Generic Name Dose Route Start Last Admin Trade Name Freq PRN Reason Stop Dose Admin Pantoprazole Sodium 40 mg in 10 mls @ 5 mls/min 07/22/24 09:00 07/23/24 10:06 Protonix IV 08/21/24 08:59 5 mls/min BID MARY ANNE Administration Lactated Ringer's 1,000 mls @ 80 mls/hr 07/21/24 19:00 07/23/24 10:06 Lr IV 07/24/24 18:59 80 mls/hr .[id number] MARY ANNE Administration Piperacillin Sod/Tazobactam Sod 4.5 gm in 100 mls @ 25 mls/hr 07/22/24 14:00 07/23/24 10:03 Zosyn IV 07/26/24 13:59 Infused Q8H MARY ANNE Infusion Protocol Ondansetron HCl 4 mg 07/21/24 18:29 07/23/24 10:06 Ondansetron Inj 2 Mg/Ml 2 Ml Vial IV 08/20/24 18:28 4 mg Q4H PRN Administration Nausea Social History Smoking Status: Current every day smoker Smoking cigarettes per day: LESS THAN A PACK Hx Alcohol Use: Yes alcohol intake frequency: holidays/special occasions only Hx Substance Use: No Physical Exam Vital Signs Last Vital Signs Temp 36.5 C 07/23/24 07:55 Pulse 72 07/23/24 07:55 Resp 18 07/23/24 07:55 BP 115/69 07/23/24 07:55 Pulse Ox 94 07/23/24 07:55 O2 Del Method Room Air 07/23/24 07:55 Testing Laboratory Results 07/23/24 07:08 07/23/24 07:08 PT 10.8 Seconds (9.0-12.0) 07/21/24 15:34 INR 1.0 (0.9-1.1) 07/21/24 15:34 APTT 29 Seconds (21-31) 07/21/24 15:34 Urine Color Yellow 07/21/24 17:11 Urine Appearance Clear (Clear) 07/21/24 17:11 Urine pH 6.0 (4.5-7.5) 07/21/24 17:11 Ur Specific [place] > 1.045 (1.000-1.030) H 07/21/24 17:11 Urine Protein Negative (Negative) 07/21/24 17:11 Urine Glucose (UA) Negative (Negative) 07/21/24 17:11 Urine Ketones 2+ (Negative) H 07/21/24 17:11 Urine Nitrite Negative (Negative) 07/21/24 17:11 Ur Leukocyte Esterase Negative (Negative) 07/21/24 17:11 Blood Type O Positive 07/21/24 15:44 Antibody Screen NEGATIVE 07/21/24 15:44 07/21/24 16:30 Aerobic Blood Culture - Preliminary Blood No growth in Aerobic bottle after 24 hours. Anaerobic Blood Culture - Preliminary No growth in Anaerobic bottle after 24 hours.
--- NOTE | 2024-07-23 13:22 | GI REPORT ---
[facility] Patient: ARLET ROBLES : 1975 Sex at : Male Age: 48 Years Procedure: Upper GI endoscopy Date: 07/23/2024 Attending Physician: Trevin Tucker MD Referring MD: Referred Self; Timothy Parra Indications: - Melena - Suspected upper gastrointestinal bleeding - Abnormal CT of the GI tract Medications: - Monitored Anesthesia Care Complications: - No immediate complications. Estimated Blood Loss: - Estimated blood loss: None. Procedure: - Prior to the procedure, a History and Physical was performed, and patient medications and allergies were reviewed. The patient's tolerance of previous anesthesia was also reviewed. The risks and benefits of the procedure and the sedation options and risks were discussed with the patient. All questions were answered, and informed consent was obtained. Prior Anticoagulants: The patient has taken no anticoagulant or antiplatelet agents. ASA Grade Assessment: III - A patient with severe systemic disease. After reviewing the risks and benefits, the patient was deemed in satisfactory condition to undergo the procedure. - The egd scope was introduced through the mouth and advanced to the third part of the duodenum. - The upper GI endoscopy was accomplished without difficulty. - The patient tolerated the procedure well. Findings: - The examined esophagus was normal. - Diffuse and patchy severe inflammation with hemorrhage characterized by erythema and congestion (edema) was found in the gastric body and in the gastric fundus (on retroflexion). Biopsies were taken with a cold forceps for histology. - Patchy moderately erythematous mucosa without active bleeding and with no stigmata of bleeding was found in the duodenal bulb. Impression: - Normal esophagus. - Acute erosive gastritis with hemorrhage, characterized by erythema and congestion (edema). Biopsied. - Erythematous duodenopathy. Recommendation: - Discharge patient to home (ambulatory). - Resume previous diet. - Continue present medications. - Await pathology results. - Return to primary care physician as previously scheduled. - Patient has a contact number available for emergencies. The signs and symptoms of potential delayed complications were discussed with the patient. Return to normal activities tomorrow. Written discharge instructions were provided to the patient. - Use Protonix (pantoprazole) 40 mg PO BID for 1 week. - Then once daily ppi for 3 months. - start soft diet. follow up biopsies. Procedure Code(s): - 03792, Esophagogastroduodenoscopy, flexible, transoral; with biopsy, single or multiple Diagnosis Code(s): - K92.1, Melena (includes Hematochezia) - R93.3, Abnormal findings on diagnostic imaging of other parts of digestive tract - K29.01, Acute gastritis with bleeding - K29.61, Other gastritis with bleeding - K31.89, Other diseases of stomach and duodenum CPT(R) - 2023 copyright [employer]. All Rights Reserved. The CPT codes, CCI edits and ICD codes generated are intended as suggestions and were generated based on input data. These codes are preliminary and upon computer language coder review may be revised to meet current compliance and payer requirements. The provider is responsible for the final determination of appropriate codes, and modifiers. Trevin Tucker MD This document has been electronically signed. Note Initiated:07/23/2024 Note Completed:07/23/2024 1:21 PM \\[id number]
[2024-07-23] MEDS: PROPOFOL IV EMULSION 10 MG/ML 20 ML VIAL IV ONE (14:07)
[2024-07-23] MEDS: LIDOCAINE 2% 2 ML VIAL/AMP(20MG/ML) INFIL ONE (14:07)
--- NOTE | 2024-07-23 14:33 | Anesthesiology Progress Note ---
Date of Service July 23, 2024 Anesthesia Post Procedure Vital Signs Vital Signs: Temp Pulse Resp BP Pulse Ox O2 Del Method 07/23/24 13:52 58 L 16 120/76 96 Room Air 07/23/24 13:40 62 16 114/74 96 Room Air 07/23/24 13:21 67 16 104/64 95 Room Air 07/23/24 12:30 36.3 C L 60 16 107/64 94 Room Air 07/23/24 07:55 36.5 C 72 18 115/69 94 Room Air 07/22/24 19:37 36.6 C 67 16 99/59 L 94 Room Air Pain Intensity Abdomen: Pain Intensity: 3 Transfer of Care Handoff Completed per policy Notes Mental Status: alert / awake / arousable Patient Amnestic to Procedure: Yes Nausea / Vomiting: adequately controlled Pain: adequately controlled Airway Patency, RR, SpO2: stable & adequate BP & HR: stable & adequate Hydration State: stable & adequate Anesthetic Complications: no major complications apparent and Pt Satisfied with anesthetic care
[2024-07-23] MEDS: ePHEDrine sulfate 50 MG/5 ML SYR ONE (15:00)
--- NOTE | 2024-07-23 15:18 | Discharge Summary ---
Discharge Summary Date of Service July 23, 2024 Principal Dx & Hospital Course #1 = Principal Diagnosis (1) Hematemesis: (2) Nausea & vomiting: (3) Diarrhea: (4) Abdominal pain: (5) GI bleed: Plan #Hematemesis, n/v, diarrhea This is a 48-year-old gentleman with no significant past medical history who presented to the emergency department on 08/07/2024 with a chief complaint of nausea and vomiting with reported hematemesis after recent household GI bug, had been taking pepto-bismol. Initial evaluation showed mild elevation of WBC at 13.24, hemoglobin stable at 16.9. His LFTs were completely normal. CTAP with air noted in the liver, probably the hepatic veins. GI consulted recommend empiric antibiotics and EGG. EGD showing acute erosive gastritis with hemorrhage. Biopsies are pending. initiated on twice daily PPI x 1 week then recommend daily x 3 months. Discussed possible triggers/exacerbating factors for gastritis. Antibiotics were discontinued as blood cultures remain negative, patient was afebrile and WBC is WNL. recommend GI follow-up outpatient, patient is already planning to see [facility] for screening colonoscopy. referral placed to them updated at bedside 07/23 Notes For Next Care Provider [facility] [employer] [facility] referral blood cultures pending EGD biopsies pending Medication Changes From Visit Protonix twice a day x 1 week, then continue daily x 3 months Admission HPI Per Admitting Provider This is a 48-year-old gentleman with no significant past medical history who presented to the emergency department on 08/07/2024 with a chief complaint of nausea and vomiting. The patient was seen and examined this evening with his at bedside. Patient reports that about 2 weeks ago his family household had an episode of gastroenteritis. He states that his family had recovered within 24 to 48 hours but he feels that his symptoms have persisted on. He states that over the last 2 weeks he has not felt right and has had intermittent nausea and diarrhea. He also states that he has been experiencing "sulfur burps". He denies any acid reflux. He denies any NSAID use. He states that yesterday he did take a dose of Pepto-Bismol but as soon as he drank it he immediately vomited it back up. He states that that was tar-like. He also reports that his episode of vomiting today was also tar-like. He states that he did have an episode of diarrhea today that was darker in color. He states that he did not exactly look closely at his stool. He denies any bright red blood. He admits to epigastric abdominal pain and describes this as a cramping sensation. He states that this has not subsided since reporting to the emergency department. He denies any chest pain, shortness of breath, urinary complaints. Denies any lower extremity edema. While in the emergency department patient was found to have a mild elevation of his WBC at 13.24, hemoglobin completely normal at 16.9. BMP unremarkable. His Pro-Krishna was negative. His troponin was negative at 2.4. His LFTs were com pletely normal. Urine was negative for infection. His CXR was negative. He did have a CTAP that did reveal air noted in the liver, probably the hepatic veins. The patient told me that Dr. Joy, the business support assistant on-call did evaluate him prior to my encounter. The patient tells me that Dr. Joy is going to reach out to the radiology department to get a second read on his CAT scan. Discharge Exam General: NAD, VS as above, sitting up in bed, drinking pj mohna Resp: normal respiratory effort, lungs clear to auscultation CV: RRR, no murmur, Abd: normal bowel sounds, non tender, soft Extremities: Moves all extremities, no edema Neuro: A&O x3, Discharge Plan Discharge Items Patient Disposition: Home - Self-Care Reason For Visit: VOMITING Discharge Diagnosis: Gastritis Condition on Discharge: Good Activity: Resume your previous activity Non-emergency contact: Primary Care Provider Call non-emergency contact if: you have any medication questions, your pain is not controlled and your pain is unusual for you Follow-up/Referrals: Sesar Leslie D.O. [Primary Care Provider] - 07/27/24 9:00 am (Follow up within on week ) Diet: Regular Addtl Attending Provider Instructions: Mr. Schmitt, You were hospitalized after having nausea at home, a scan in the ER showed concern for air in your liver, probably in the hepatic veins. Thankfully, your nausea has improved. You had an EGD (upper endoscopy) done that showed extensive erosive gastritis. The GI team recommended being on protonix twice a week for one week and then daily for 3 months after that. The GI doctor took biopsies of your stomach during your EGD and these are pending. Avoiding spicy foods, acidic foods, alcohol and smoking will also help your gastritis. You should have GI follow up outpatient - a referral to [facility] has been placed for you. If you do not hear from them by please call their office. I have attached information about gastritis and ways to prevent this from worsening. Recommend follow up with PCP in one week. Pending Studies at Discharge: Yes (EGD biopsies ) Stand-Alone Forms: My [facility], Smoking Cessation Medications and DC Order Prescriptions: New pantoprazole [Protonix] 40 mg tablet,delayed release (DR/EC) 40 mg PO DAILY Qty: 37 0RF Rx Instructions: twice a day for one week and then daily afterwards Discharge Orders: Discharge Order (Routine); Ordered 07/23/24 Ordered By: Bina Burciaga/Other Patient Handouts: Treating Gastritis, Soft [place] Diet Dc, ED Soft Diet, ED Gastritis (Adult) Admission Data Admit Date/Time: 07/21/24 18:25 Attending Provider: Timothy Parra Admit Provider: [place] Primary Care Provider: Sesar Leslie Other Providers: [place]; Solo Joy I Other Interventions: Discharge Summary Assessment (RN) Last Done: 07/23/24 15:39 Hospital Stay Data Consultations 07/21/24 18:12 ED Decision to Admit Stat 07/21/24 18:25 Consult Gastroenterology Routine Procedures Performed Operation Date: 07/23/24 17:10 Actual Procedures p EGD Biopsy Cytology(Not Applicable) - Trevin Tucker MD Diagnostic Imagining Performed Chest X-Ray 07/21/24 16:04 Chest radiograph, one view History: Chest pain Comparison: Findings: Single AP view of the chest performed. 4:01 PM No focal consolidation or pleural effusion. No pneumothorax. The cardiomediastinal silhouette is within normal limits. Normal pulmonary vascularity. No evidence for lymphadenopathy. No visualized bony or soft tissue abnormality. Impression: Normal chest radiograph Electronically signed by Josh Pat 07-21-2024 4:41 PM Abdomen/Pelvis CT 07/21/24 16:08 Technique: Axial images were obtained along with coronal and sagittal reconstruction. Patient was injected with contrast intravenously, the amount and type is recorded in the EMR DLP in mGycm reported in the EMR record. Dose lowering technique: Automated exposure control with adjustment of the MA and/or KV, use of iterative reconstruction. Data included in the medical record Findings: Imaged lower lung crenshaw are clear. Air is noted in the liver. Probably in the portal veins. No biliary dilatation. No masses. Gallbladder is normal. Pancreas is unremarkable. No dilatation of the pancreatic duct. Kidneys are normal. No free air or evidence of small bowel obstruction. Normal appendix. Bladder is unremarkable. Severe disc space narrowing at several lumbar levels. Impression Air noted in the liver, probably in the hepatic veins. Etiology is not evident from the examination Electronically signed by Josh Pat 07-21-2024 4:49 PM Pending Results Patient Have Any Pending Studies at Discharge: Yes (EGD biopsies ) Discharge Instructions Given to Patient (Per Discharging Provider) Mr. Schmitt, You were hospitalized after having nausea at home, a scan in the ER showed concern for air in your liver, probably in the hepatic veins. Thankfully, your nausea has improved. You had an EGD (upper endoscopy) done that showed extensive erosive gastritis. The GI team recommended being on protonix twice a week for one week and then daily for 3 months after that. The GI doctor took biopsies of your stomach during your EGD and these are pending. Avoiding spicy foods, acidic foods, alcohol and smoking will also help your gastritis. You should have GI follow up outpatient - a referral to [facility] has been placed for you. If you do not hear from them by please call their office. I have attached information about gastritis and ways to prevent this from worsening. Recommend follow up with PCP in one week. Total Time Total Time Spent Total Time Spent (In Minutes): Time spent day of discharge 36 minutes including direct patient care, medication reconciliation, documentation, review of labs and images, and coordination of care. Coding Level of Care Code 54562 INP/OBS DISCH >30 MIN Diagnoses Hematemesis K92.0 Nausea & vomiting R11.2 Diarrhea R19.7 Abdominal pain R10.9 GI bleed K92.2
== END 2024-07-23 17:33 | disposition home or self-care (01) ==
LOC: ED 15:12 → INTOOBSV 18:25 → 3N 18:25 → SUATTDRO 18:25 → 3N 21:19